=== PATIENT | female | born 1975 | race Caucasian/White ===

== ENCOUNTER 2018-08-10 05:41 | Emergency (ER) | payer MEDICAID, SELFPAY ==
[2018-08-10 05:42] VITALS: BP 123/78; PULSE 62; RESP 22; TEMP 36.6; O2SAT 100; BMI 20.1
--- NOTE | 2018-08-10 05:46 | ED.DCSUM_ITS ---
- ER Visit Summary Date of Service: 08/10/18 Chief Complaint: Right flank pain History of Present Illness: The patient is a 42 F who has right flank pain. She has had this for a week. She has pain on the right side of the flank. It does not radiate. She states she has had urinary frequency. No dysuria or hematuria. She denies fevers but has had some sweats. She tried ibuprofen without any relief. She does have history of UTIs in the past. No history of kidney stones. Physical Examination: Vital signs reviewed. HEENT exam unremarkable. Heart is regular rate and rhythm without murmurs. Lungs are clear to auscultation. Abdomen is soft and nontender. She does have some right CVA tenderness to palpation. Extremities reveal no edema. Skin exam normal. Neurologic exam normal. Test Results: Urinalysis and hCG are negative Emergency Department Course and Treatment: The patient was given [place]. She has no evidence of blood or infection in her urine. This is likely muscular. She states that she does lift a lot at work. I will treat her with naproxen and Flexeril. She will follow-up with her primary care physician. Treatment Plan: [] Disposition: Discharge Impression: Thoracic strain, right This note was generated with [employer] dictation software. It may contain incorrect words, spelling, and punctuation that were not noted in review of the chart prior to signing ED Disposition - Plan for ED Patient: Chief Complaint: Flank Pain Referrals: Care Physician,No Primary [Primary Care Provider] -
[2018-08-10] MEDS: HYDROcodone Bitartrate/Apap 5/325 Tablet PO (05:49)
[2018-08-10 05:55] LABS: Mucous, Urine 0 SEEN /hpf (<or=2+); Red Blood Cells-Urine 0 SEEN /hpf (0-5); Squamous Epithelial Cells - UA 0 SEEN /hpf (5-10); White Blood Cells 0 SEEN /hpf (0-5)
[2018-08-10 05:56] LABS: Color, Urine Yellow (Yellow); Glucose, Dipstick Normal (Normal); Ketone-Dipstick Negative (Negative); Leukocyte Esterase-Dipstick Negative /ul (Negative); Nitrite-Dipstick Negative (Negative); Occult Blood-Urine Negative /ul (Negative); Protein-Dipstick Negative (Negative); Urine Bilirubin Dipstick Negative (Negative); Urine Clarity Clear (Clear); Urine Urobilinogen Normal (Normal); Urine pH 6.5 (5.0 - 8.0)
[2018-08-10 06:00] LABS: Internal QC Validated? YES +Cl - CLEAR BKGD; Pregnancy, Urine Negative Negative
--- NOTE | 2018-08-10 06:23 | ED.DEP ---
ED Disposition - Plan for ED Patient: Disposition: Home or Assisted Living Chief Complaint: Flank Pain Instructions: ED Sprain Strain Lumbar Prescriptions: Naproxen [Naprosyn] 500 mg PO BID PRN #20 tab Cyclobenzaprine [Flexeril] 10 mg PO TID PRN #20 tab PRN Reason: Muscle Spasm Referrals: Care Physician,No Primary [Primary Care Provider] -
[2018-08-10 06:26] LABS: Bacteria RARE /hpf (None Seen); Transitional Epithelial - Ur 0-5 SEEN /hpf (0-5)
[2018-08-10 06:34] VITALS: BP 139/74; PULSE 89; RESP 20; O2SAT 98
--- NOTE | 2018-08-10 06:35 | ED.RN ---
THIS NURSE REVIEWED D/C INSTRUCTIONS WITH PT. PT VERBALIZED UNDERSTANDING OF INSTRUCTIONS. PT DENIES FURTHER NEEDS OR QUESTIONS AT THIS TIME.
== END 2018-08-10 06:36 | disposition home or self-care (01) ==
PROVIDERS: Emergency Provider Emergency Medicine
DX: S29.012A Strain of muscle and tendon of back wall of thorax, initial encounter (principal); X58.XXXA Exposure to other specified factors, initial encounter; Y93.9 Activity, unspecified; Y92.9 Unspecified place or not applicable; Y99.9 Unspecified external cause status; R35.0 Frequency of micturition; Z72.0 Tobacco use; Z86.711 Personal history of pulmonary embolism; Z87.440 Personal history of urinary (tract) infections
CPT/HCPCS: 81001; 81025; 99283

== ENCOUNTER → 2018-09-02 16:48 | Outpatient (CLI) | payer MEDICAID, SELFPAY | PROVIDERS: Visit Provider Obstetrics & Gynecology | DX: R30.0 Dysuria (principal); R31.9 Hematuria, unspecified | CPT/HCPCS: 87086; 87088; 87186 ==

== ENCOUNTER 2018-09-29 07:31 | Emergency (ER) | payer MEDICAID, SELFPAY ==
[2018-09-29 07:32] VITALS: BP 124/80; PULSE 78; RESP 18; TEMP 36; O2SAT 100; BMI 19.8
--- NOTE | 2018-09-29 07:59 | US_ITS ---
STUDY: ABDOMINAL ULTRASOUND - RIGHT UPPER QUADRANT REASON FOR VISIT: Female, 42 years old. 2 day history of intermittent epigastric pain. TECHNIQUE: Ultrasound evaluation of the right upper quadrant was performed with real-time and static bhandari-scale imaging. TECHNICAL QUALITY: Adequate. COMPARISON: None. FINDINGS: Liver: The liver measures 15.6 cm. There is normal echogenicity of the liver. The bile ducts are within normal limits. There is hepatic color flow. The direction of portal flow is hepatopetal. There is no demonstrated mass lesion. Gallbladder: Normal distended gallbladder. The gallbladder wall measures 2.6 mm. There is a negative sonographic Mendoza's sign. There is no pericholecystic fluid. There are no gallstones. Common Bile Duct (C.B.D.): The common bile duct measures 2.5 mm. Pancreas: Normal size of the head, body and tail of the pancreas. There is normal echogenicity of the pancreas. There is no demonstrated pancreatic mass or cyst. Right Kidney: Normal size of the right kidney. The right kidney measures 11.1 cm x 4.1 cm x 3.8 cm. Normal renal cortex. The right cortex measures 1.1 cm. There is no demonstrated renal mass or cyst. There is no right hydronephrosis. US/Gallbladder IMPRESSION: Normal right upper quadrant ultrasound examination. Electronically Signed: Nathan Maier MD at 9:50 EST Tel [phone], Service support ,
--- NOTE | 2018-09-29 08:02 | ED.DCSUM_ITS ---
- ER Visit Summary Date of Service: 09/29/18 Chief Complaint: Abdominal pain History of Present Illness: The patient is a [address] Monty Díaz. She reports that she has upper abdominal pain began 2 days ago. It is a constant dull pain with cramping episodes last 10-15 seconds at a time. It is 10 out of 10 at worst and 6 out of 10 currently. Is worsened by food and deep breaths. Is relieved by nothing. She reports she is been nausea and vomited 3-4 times. No blood or emesis. She states that she is having frequent soft stools. Her last problem was today. She denies any melena or hematochezia. She is passing gas. No dysuria or frequency. She is never had anything like this before. She denies any spicy or fatty food intolerance. Physical Examination: Vitals: Stable. Afebrile. General: Well-nourished and well-developed. Head: Normocephalic atraumatic. Neck: Supple, no lymphadenopathy. No JVD. Nontender. Cardiovascular: Regular rate and rhythm. No murmurs. Respiratory: No respiratory distress. Clear to auscultation bilaterally. Abdominal: Soft, mild right upper quadrant and moderate epigastric tenderness to palpation, nondistended, normal bowel sounds. No guarding, rebound, or peritoneal signs. Back: Nontender. Extremities: Nontender, no edema. Skin: Normal color, no rash. Neurologic: Alert and oriented ?3. Cranial nerves II through XII are intact. Normal strength and sensation. Psych: Normal affect. Test Results: CBC is remarkable for hemoglobin of 15. Chem-7 is more for creatinine 0.54. LFTs are normal. Lipase is normal. UA is marked for leukocytes and ketones. Right upper quadrant ultrasound shows normal gallbladder. Lost 2.6 mm. Common bile duct is 2.5 mm. No gallstones. No pericholecystic fluid. No Mendoza sign. Emergency Department Course and Treatment: Patient had an IV placed. She was given morphine and Zofran IV. She is resting comfortably. Treatment Plan: I had a prolonged discussion the patient at this time I do not have an explanation for her abdominal pain. With a complaint of being epigastric in origin of sense of fullness she will be placed on Zantac. Given Zofran for nausea. Instructed to follow-up Dr. Monty Díaz 1-2 days if not improving. Return to the emergency department for any worsening symptoms. Disposition: To home in improved and stable condition. Impression: 1. Abdominal pain, uncertain cause. This note was generated with [employer] dictation software. It may contain incorrect words, spelling, and punctuation that were not noted in review of the chart prior to signing ED Disposition - Plan for ED Patient: Chief Complaint: Abd Pain Instructions: ED Abdominal Pain Unkn Cause Prescriptions: Ondansetron [Zofran Odt] 4 mg PO Q8H PRN PRN #10 tablet PRN Reason: Nausea Ranitidine [Zantac] 300 mg PO DAILY #30 tablet Referrals: Monty Díaz MD [STAFF PHYSICIAN] - 1-2 Days if not improving
[2018-09-29] MEDS: Morphine 4 MG/ML Syringe IV (08:13)
[2018-09-29] MEDS: Ondansetron 4 MG/2 ML Vial IV (08:13)
[2018-09-29] MEDS: 0.9% Normal Saline 1,000 ML 1000 ML IV (08:13)
[2018-09-29 08:19] LABS: Absolute Lymphocyte Count 1.38 X10^3/ul (0.83-4.51); Absolute Neutrophil Count 4.2 X10^3/uL (2.0-7.7); Basophil# 0.03 X10^3/uL; Basophil% 0.5 % (0-1); Eosinophil# 0.05 X10^3/uL; Eosinophils% 0.8 % (0-5); Hematocrit 43.4 % (37-47); Hemoglobin 15.2 g/dl (12.0-15.0); Lymphocyte # 1.38 X10^3/ul (4.0); Lymphocyte % 23.2 % (19-41); Mean Corpuscular Hgb 33.4 pg (27.0-32.0); Mean Corpuscular Volume 95.4 fL (81-99); Mean Platelet Vol. 10.5 fl (6.2-12.0); Monocyte# 0.29 X10^3/uL; Monocyte% 4.9 % (0-10); Neutrophil # 4.19 X10^3/uL (2.7-7.7); Neutrophil % 70.4 % (47-70); POSITIVE COUNT NO; POSITIVE DIFFERENTIAL NO; POSITIVE MORPHOLOGY NO; Platelet Count 210 K/mm3 (150-450); RBC Distribution Width CV 12.1 % (11.6-14.6); RBC Distribution Width SD 41.4 fl (35.1-43.9); Red Blood Count 4.55 M/mm3 (4.2-5.4)
[2018-09-29 08:24] LABS: ALB/GLOB Ratio 1.3 RATIO (0.9-2.4); AST(SGOT) 15 U/L (15-37); Alanine Aminotransfer ALT/SGPT 19 U/L (13-56); Albumin, Serum 4.1 g/dL (3.2-5.0); Alkaline Phosphatase 59 U/L (45-117); BUN 12 mg/dL (7-18); BUN/Creat Ratio 22.2 RATIO (10-20); Calcium,Total 8.9 mg/dL (8.5-10.1); Chloride 107 mmol/L (98-107); Creatinine, Serum 0.54 mg/dL (0.55-1.02); EST Glomerular Filtration Rate 132 mL/min (>60); Est Glom Filt Rate - Afr Amer 160 mL/min (>60); Estimated Creatinine Clearance 125.94 ml/min; Globulin 3.2 g/dL (2.2-4.2); Glucose 100 mg/dL (74-106); Lipase 151 U/L (73-393); Potassium 3.8 mmol/L (3.5-5.1); Protein, Total 7.3 g/dL (6.4-8.2); Sodium Level 141 mmol/L (136-145)
[2018-09-29 08:25] LABS: Anion Gap 7 (5-15)
[2018-09-29 10:12] VITALS: BP 135/74; PULSE 62; RESP 15; O2SAT 98
[2018-09-29 10:15] LABS: Bacteria 0 SEEN /hpf (None Seen); Mucous, Urine 0 SEEN /hpf (<or=2+); Red Blood Cells-Urine 0 SEEN /hpf (0-5); Squamous Epithelial Cells - UA 0 SEEN /hpf (5-10)
[2018-09-29 10:19] LABS: Color, Urine Yellow (Yellow); Glucose, Dipstick Normal (Normal); Ketone-Dipstick 5 mg/dl (Negative); Leukocyte Esterase-Dipstick 25 /ul (Negative); Nitrite-Dipstick Negative (Negative); Occult Blood-Urine Negative /ul (Negative); Protein-Dipstick Negative (Negative); Specific Gravity, Urine 1.015 (1.002-1.030); Urine Bilirubin Dipstick Negative (Negative); Urine Clarity Clear (Clear); Urine Urobilinogen Normal (Normal); Urine pH 6.5 (5.0 - 8.0)
[2018-09-29 10:25] LABS: White Blood Cells 0-5 SEEN /hpf (0-5)
[2018-09-29] MEDS: Famotidine 20 MG Tablet 40 MG PO (10:52)
[2018-09-29] MEDS: Ketorolac 30 MG/ML Syringe IV (10:52)
[2018-09-29 10:56] VITALS: BP 137/84; PULSE 72; RESP 16; O2SAT 97
== END 2018-09-29 10:57 | disposition home or self-care (01) ==
LOC: ED 08:02
PROVIDERS: Emergency Provider Emergency Medicine
DX: R10.9 Unspecified abdominal pain (principal); R11.2 Nausea with vomiting, unspecified; Z72.0 Tobacco use; Z79.899 Other long term (current) drug therapy
CPT/HCPCS: 76705; 80053; 81001; 83690; 85025; 96361; 96374; 96375; 99284; J7030; A4216; J2405

== ENCOUNTER 2019-07-13 08:21 | Emergency (ER) | payer SELFPAY ==
[2019-07-13 08:22] VITALS: BP 131/86; PULSE 111; RESP 16; TEMP 36.3; O2SAT 97; BMI 20.3
--- NOTE | 2019-07-13 08:44 | RAD_ITS ---
STUDY: X-RAY CHEST REASON FOR EXAM: Female, 43 years old. Upper respiratory tract infection. Cough. TECHNIQUE: PA and lateral views of the chest. COMPARISON: None. FINDINGS: EKG electrodes are seen. The lungs are clear and expanded. There is no demonstrated pleural abnormality. Normal size heart. Normal mediastinum and nupur. Normal visualized pulmonary arteries. Normal visualized aortic arch and descending thoracic aorta. Normal visualized thoracic spine. Normal visualized ribs, clavicles, and shoulders. There is no demonstrated abnormality of the visualized soft tissue structures of the upper abdomen. RAD/Chest PA and Lateral IMPRESSION: Normal x-ray examination of the chest. Electronically Signed: Nathan Maier, at 9:22 EDT , Service support ,
--- NOTE | 2019-07-13 08:44 | EKG12_ITS ---
Test Reason : CP Blood Pressure : / mmHG Vent. Rate : 079 BPM Atrial Rate : 079 BPM P-R Int : 164 ms QRS Dur : 066 ms QT Int : 372 ms P-R-T Axes : 070 072 063 degrees QTc Int : 426 ms Sinus rhythm with Premature supraventricular complexes Otherwise normal ECG Confirmed by BLAINE SAUER ([id number]), multimedia editor NICKOLAS FRANCOIS ([id number]) on 07/20/2019 10:13:10 AM Referred By: MOISÉS
--- NOTE | 2019-07-13 08:44 | ED.VIS.GEN ---
History of Present Illness Chief Complaint: Chest Pain Detail of Chief Complaint: Anterior left lower parasternal chest pain Informant: Patient Onset: Yesterday Context: Sudden Onset Timing: Continuous Quality: Pain Location: Left parasternal lower anterior chest Current Severity: Mild Maximum Severity: Severe Worsened by: Movement LUE, movement, touch, breathing and coughing Relieved by: Nothing Associated Symptoms: Runny nose, nonproductive cough Narrative: Patient is a 43-year-old female who is a smoker who presents with anterior left parasternal chest pain that is worse with movement, coughing, breathing and use of left upper extremity for the past 2 days. She does report rhinorrhea and congestion. There is a remote history of pulmonary embolus 8 years ago after delivery of child. She denies leg pain, swelling or discoloration. She denies headache, ocular, visual or auditory symptoms. There is no history of trauma. She took a dose of ibuprofen last evening and reports no improvement. She denies hematemesis, melena or hematochezia. She has no intolerance to food. She has no history of pancreatitis. She denies alcohol use. She denies change in color of stool, consistency or caliber. Prior similar symptoms: No Recent Illness/Hospitalization: No - Past Medical History (1) Bipolar disorder Status: Chronic (2) Pulmonary embolism Status: Chronic (3) Tobacco user Status: Chronic Past Medical History - Allergies and Home Meds Allergies/Adverse Reactions: Allergies latex Allergy (Verified 07/13/19 08:24) Rash Primary Care Physician: Care Physician,No Primary [Primary Care Provider] - Prior records reviewed: Yes Surgical History: noncontributory, hysterectomy Lives: With Family Smoking Status: Current every day smoker Alcohol: None Drugs: None Review of Systems General: Denies: Chills, Fever, Malaise, Subjective, Sweats Eyes: Denies: Visual changes - bilaterally, Blurred Vision - bilaterally ENT: Reports: Rhinorrhea. Denies: Bilateral ear pain, Sore throat Cardiovascular: Reports: Chest pain. Denies: Palpitations, Heart racing Respiratory: Reports: Cough. Denies: Dyspnea, Sputum, Dyspnea on exertion, Orthopnea, Paroxysmal nocturnal dyspnea Gastrointestinal: Denies: Abdominal pain, Nausea, Vomiting, Diarrhea, Melena, Hematochezia Genitourinary: Denies: Dysuria, Hematuria, Frequency Musculoskeletal: Denies: Myalgias, Arthralgias, Neck pain, Back pain, Swelling, Extremity Pain, -, - Skin: Denies: Rash, Wounds Neurological: Denies: Headache, Weakness, Numbness Hematologic: Denies: Easy bruising, Easy bleeding Allergy: Denies: Uticaria, Swelling of the mouth, Swelling of the tongue Physical Exam Vital Signs/Narrative: Vital Signs Temp Pulse Resp BP Pulse Ox 07/13/19 08:22 97.3 F L 111 H 16 131/86 H 97 Inital Vital Signs reviewed: Yes General: Well nourished, Well developed, Acute Distress Head: Normocephalic, Atraumatic Eyes: Perrl, EOMI ENT: Moist mucous membranes, TM's clear, Nasal congestion. Negative for: No rhinorrhea Neck: Supple, Nontender, No lymphadenopathy, No JVD Cardiovascular: Regular rate, Regular rhythm, No murmurs, Normal S1, Normal S2 Respiratory: No distress, CTA bilaterally, Chest tenderness - Patient has exquisite tenderness fifth left intercostal space to light touch. She states this reproduces her pain. Abdomen: Soft, Nontender, Nondistended, Normal bowel sounds, No masses. Negative for: Hepatomegaly, Splenomegaly, Mass Rectal: Deferred Back: Nontender, Normal Inspection Extremities: Nontender, No edema, - - There is no asymmetry, swelling, discoloration, leg vein distention, palpable cords or tenderness along the distribution of the deep venous system. Skin: Normal color, No rash, No Trauma. Negative for: Cyanosis, Diaphoresis, Jaundice Neurological: Alert, Oriented x3, Cranial nerves II-XII grossly intact, Normal Strength, Normal Sensation, Normal DTR Psychological: Tearful Diagnostic/Tx/Re-eval Chest X-Ray - ED: 2 View, Normal, Heart, Mediastinum, Bony Structures, No Acute Disease, Chronic Changes, - - There is no infiltrate or pneumothorax. There is evidence of hyper aeration consistent with long-standing history of smoking. 07/13/19 08:44 Chest PA and Lateral [RAD] Stat Laboratory Results 07/13/19 07/13/19 08:34 08:34 WBC 7.4 RBC 4.29 Hgb 14.1 Hct 40.3 MCV 93.9 MCH 32.9 H MCHC 35.0 RDW Std Deviation 41.4 RDW Coeff of Florentin 12.1 Plt Count 244 MPV 10.5 Immature Gran % (Auto) 0.300 Neut % (Auto) 68.7 Lymph % (Auto) 23.4 [place] % (Auto) 5.7 Eos % (Auto) 1.2 Baso % (Auto) 0.7 Absolute Neuts (auto) 5.1 Absolute Lymphs (auto) 1.72 Nucleated RBC % 0 Sodium 140 Potassium 4.0 Chloride 108 H Carbon Dioxide 26.0 Anion Gap 6 BUN 9 Creatinine 0.67 Estim Creat Clear Calc 102.86 Est GFR (MDRD) Af Amer 125 Est GFR (MDRD) Non-Af 103 BUN/Creatinine Ratio 13.5 Glucose 98 Calcium 9.1 - EKG Initial EKG Interpretation: Sinus Rhythm - Ventricular rate is 79. WI interval is 164 ms. QRS duration is 66 ms. QT duration is 372 ms. There is motion artifact. Computer is reading premature supraventricular complexes. There is one premature atrial complex noted. There are no ischemic changes. - Medical Decision Making With URI symptoms, reproducible left anterior chest pain suspect costochondritis. Because she has a cough and is a smoker will obtain chest x-ray to evaluate for pneumonia. Patient was treated with IV Toradol. EKG was obtained per nurse protocol and reveals a sinus rhythm. There is no ischemic changes noted. Was informed of her results. She is no longer having pain. Will discharge with prescription for NSAIDs as is no contraindication. ED Disposition - Plan for ED Patient: Disposition: Home or Assisted Living Diagnosis: Pleurisy, Costochondritis, acute, Viral URI with cough Instructions: Pleurisy, CHEST WALL PAIN, Costochondritis Prescriptions: Naproxen [Naprosyn] 500 mg PO BID #14 tab Transmission Status: Pending to [facility]30 Referrals: Care Physician,No Primary [Primary Care Provider] - Additional Instructions: Prescription was electronically transmitted to [facility]formerly [facility] If you are not better in a week follow-up with your primary care provider. Your primary care provider's name is on your insurance card issued to you by [facility].
[2019-07-13 08:51] LABS: Absolute Lymphocyte Count 1.72 X10^3/uL (0.83-4.51); Absolute Neutrophil Count 5.1 X10^3/uL (2.0-7.7); Basophil# 0.05 X10^3/uL; Basophil% 0.7 % (0-1); Eosinophil# 0.09 X10^3/uL; Eosinophils% 1.2 % (0-5); Hematocrit 40.3 % (37-47); Hemoglobin 14.1 g/dL (12.0-15.0); Lymphocyte # 1.72 X10^3/ul (4.0); Lymphocyte % 23.4 % (19-41); Mean Corpuscular Hgb 32.9 pg (27.0-32.0); Mean Corpuscular Volume 93.9 fL (81-99); Mean Platelet Vol. 10.5 fl (6.2-12.0); Monocyte# 0.42 X10^3/uL; Monocyte% 5.7 % (0-10); NRBC Flagged by Analyzer 0 % (0-5); Neutrophil # 5.05 X10^3/uL (2.7-7.7); Neutrophil % 68.7 % (47-70); Platelet Count 244 K/mm3 (150-450); RBC Distribution Width CV 12.1 % (11.6-14.6); RBC Distribution Width SD 41.4 fl (35.1-43.9); Red Blood Count 4.29 M/mm3 (4.2-5.4); White Blood Count 7.4 K/mm3 (4.4-11.0)
[2019-07-13] MEDS: Ketorolac 15 MG/ML Vial IV (08:55)
[2019-07-13 08:58] LABS: Anion Gap 6 (5-15); BUN 9 mg/dL (7-18); BUN/Creat Ratio 13.5 RATIO (10-20); Calcium,Total 9.1 mg/dL (8.5-10.1); Chloride 108 mmol/L (98-107); Creatinine, Serum 0.67 mg/dL (0.55-1.02); EST Glomerular Filtration Rate 103 mL/min (>60); Est Glom Filt Rate - Afr Amer 125 mL/min (>60); Estimated Creatinine Clearance 102.86 ml/min; Glucose 98 mg/dL (74-106); Sodium Level 140 mmol/L (136-145)
[2019-07-13 09:32] VITALS: BP 92/63; PULSE 64; RESP 16; O2SAT 99
== END 2019-07-13 09:33 | disposition home or self-care (01) ==
PROVIDERS: Emergency Provider Emergency Medicine
DX: R09.1 Pleurisy (principal); M94.0 Chondrocostal junction syndrome [Tietze]; J06.9 Acute upper respiratory infection, unspecified; I49.1 Atrial premature depolarization; F17.200 Nicotine dependence, unspecified, uncomplicated; Z86.711 Personal history of pulmonary embolism; Z91.040 Latex allergy status; Z90.710 Acquired absence of both cervix and uterus
CPT/HCPCS: 71046; 80048; 85025; 93005; 96374; 99284; A4216

== ENCOUNTER 2022-09-18 14:41 | Emergency (ER) | payer MEDICAID, SELFPAY ==
[2022-09-18 14:42] VITALS: BP 131/62; PULSE 80; RESP 16; TEMP 36.2; O2SAT 99; BMI 21.2
--- NOTE | 2022-09-18 15:00 | ED.VIS.BACK ---
HPI History of Present Illness Chief Complaint: Back Narrative Narrative: 46-year-old female presenting with left lower back pain. She states she had just received her jump rope in the mail and went to jump rope outside. She states after a couple of turns she felt something pull in her lower gluteal region and lower back. She did not warm up before the exercise and states I did not feel I needed to warm up. She does not jump rope on a regular basis. She denies a fall or direct trauma. She took 200 mg of Advil before coming and states this has not helped. She denies saddle anesthesia paresthesia. No loss of bladder bowel control. No history of back surgeries in the past PFSH PFSH Medical History no medical history Home Medications naproxen 500 mg tablet 500 mg PO BID #14 tabs 07/13/19 [Rx Last Taken Unknown] cyclobenzaprine 10 mg tablet 10 mg PO BID PRN muscle spasm #14 tabs 09/18/22 [Rx Last Taken Unknown] hydrocodone-acetaminophen 5-325mg 5mg-325mg 1 tab PO Q6H PRN pain 3 days #10 tabs 09/18/22 [Rx Last Taken Unknown] Allergy/AdvReac Type Severity Reaction Status Date / Time latex Allergy Rash Verified 09/18/22 14:41 Surgical History no surgical history Social History Smoking Status: Current every day smoker tobacco type: cigarettes ROS ROS ED Constitutional Constitutional ED: Denies chills or fever(s) Eyes Eyes: Denies change in vision ENT ENT ED: Denies rhinorrhea or sore throat Cardiovascular Cardiovascular: Denies chest pain or palpitations Respiratory/Chest Respiratory/Chest: Denies dyspnea or dyspnea on exertion Gastrointestinal Gastrointestinal: Denies abdominal pain or constipation Genitourinary Genitourinary ED: Denies dysuria or hematuria Musculoskeletal Musculoskeletal: Reports back pain; Denies arthralgias Integumentary Denies abscess or Abrasions Neurologic Neurologic: Denies headache(s) or paresthesias Psychiatric Psychiatric: Denies anxiety or depression EXAM Physical Exam Const Vital Signs: 09/18/22 14:42 Temperature 97.1 F L Temperature Source Temporal Pulse Rate 80 Respiratory Rate 16 Blood Pressure 131/62 H Blood Pressure Mean 85 Pulse Ox 99 Oxygen Delivery Method Room Air Positive well nourished HEENT Reports moist mucous membranes trauma Eyes PERRL and EOMs intact bilaterally Neck no lymphadenopathy Resp normal respiratory effort and clear to auscultation bilaterally Cardio regular rate and regular rhythm GI normal to inspection, nondistended, normoactive bowel sounds Back/Spine Back/Spine Narrative: No midline lumbar spinal tenderness, deformity, step-off. There is tenderness palpation in the left lumbar paraspinal musculature. No rash, ecchymosis. Extremity normal to inspection Neuro oriented x3 and no sensory deficits noted Sensorium / Orientation: alert Motor Exam: strength 5/5 throughout Psych mental status grossly normal Skin no rashes or lesions noted and no wounds MDM MDM MDM Narrative Medical decision making narrative: Okay with morphine and Zofran as well as Toradol. She is feeling better on reevaluation at 4 PM. Counseled her on stretching exercises. I did also family court counsellor her on warming up before exercise but she is waiting to her back pain resolves before restarting. X-rays of the lumbar spine on my interpretation showed no acute fracture. The radiologist interpretation agrees. He does mention that there is some disc base narrowing at L2-L3 with spondylolisthesis. Patient counseled on findings. He is counseled to use ibuprofen and Tylenol alternating doses at home. She will be given [place] and cyclobenzaprine for breakthrough symptoms. She can alternate these, Impression: 1 lumbar strain Lab Data Attestation: I reviewed the patient's lab results. Radiography Diagnostic Testing: Clinical Impression(s) from Imaging Studies Lumbar Spine X-Ray 09/18/22 15:20 IMPRESSION: Spondylolisthesis and disc space narrowing at the L2-L3 level. Mild degree of levoconvex scoliosis. Electronically Signed: Nathan Maier MD at 15:37 EDT , Discharge Plan Triage Chief Complaint: Back ED Provider: Bernard Reyes Dx/Rx/DC Orders Instructions: ED Back Sprain/Strain Prescriptions: New hydrocodone-acetaminophen 5-325 mg tablet 1 tab PO Q6H PRN (Reason: pain) 3 Days Qty: 10 0RF cyclobenzaprine 10 mg tablet 10 mg PO BID PRN (Reason: muscle spasm) Qty: 14 0RF No Action naproxen 500 MG tablet 500 mg PO BID Qty: 14 0RF Primary Care Provider: Care Physician,No Primary Referrals: Garima Norton MD [Med Staff - [employer]] - 3-5 Days Care Physician,No Primary [Primary Care Provider] - Disposition Disposition: Home, Self Care
[2022-09-18] MEDS: Lidocaine 5% Patch 1 PATCH TOPICAL (15:06)
[2022-09-18] MEDS: Ketorolac 15 MG/ML Vial IM (15:07)
[2022-09-18] MEDS: Morphine 4 MG/ML Syringe IM (15:07)
[2022-09-18] MEDS: Ondansetron ODT 4 MG Tablet PO (15:10)
--- NOTE | 2022-09-18 15:20 | RAD_ITS ---
STUDY: X-RAY - LUMBAR SPINE REASON FOR EXAM: Female, 46 years old. Back pain TECHNIQUE: 3 view(s) of the lumbar spine were obtained. COMPARISON: None FINDINGS: Normal lumbar lordosis. There is a mild levoscoliosis of the lumbar spine. There is a normal alignment of the vertebrae. Spondylosis and disc space narrowing at the L2-L3 level. The soft tissue structures are unremarkable. RAD/Lumbar Spine 2 or 3 Views IMPRESSION: Spondylolisthesis and disc space narrowing at the L2-L3 level. Mild degree of levoconvex scoliosis. Electronically Signed: Nathan Maier MD at 15:37 EDT ,
[2022-09-18 16:10] VITALS: BP 103/64; RESP 14
--- NOTE | 2022-09-18 16:11 | ED.RN ---
PT REPORTS SHE IS TEXTING HER SIGNIFICANT OTHER TO OBTAIN A RIDE HOME. INFORMED NOT TO DRIVE WHEN TAKING NARCOTIC MEDICATION AND THAT SHE US UNABLE TO DRIVE FOR 6 HOURS AFTER HAVING MEDICATION.
== END 2022-09-18 16:11 | disposition home or self-care (01) ==
PROVIDERS: Emergency Provider Student in an Organized Health Care Education/Training Program; Visit Provider Student in an Organized Health Care Education/Training Program
DX: S39.012A Strain of muscle, fascia and tendon of lower back, initial encounter (principal); M48.061 Spinal stenosis, lumbar region without neurogenic claudication; X58.XXXA Exposure to other specified factors, initial encounter; Y93.56 Activity, jumping rope; Z79.1 Long term (current) use of non-steroidal anti-inflammatories (NSAID); F17.210 Nicotine dependence, cigarettes, uncomplicated
CPT/HCPCS: 72100; 96372; 99284

== ENCOUNTER 2024-01-06 09:52 | Emergency (ER) | payer MEDICAID, SELFPAY ==
[2024-01-06 09:52] VITALS: BP 128/72; PULSE 62; RESP 14; TEMP 35.7; O2SAT 100; BMI 19.5
--- NOTE | 2024-01-06 10:04 | EDS_ITS ---
HPI History of Present Illness Chief Complaint: Chest Other Detail of Chief Complaint: Right lower rib cage injury. Informant: patient Onset/Context/Timing Onset: Days Activity at onset: sudden Timing: Continuous Quality: Positive for Sharp Location: Right Chest Current Severity: Mild Maximum Severity: Moderate Worsened By: Movement of Torso and Breathing Relieved By: Remaining Still Associated Symptoms: Negative for Nausea, Vomiting, Diaphoresis, Dyspnea, Cough, Fever, Lightheadedness, Acid Reflux or Palpitations Narrative Narrative: 48-year-old female has no past medical history. Patient's and daughter were messing around wrestling. They landed on her left rib cage and she has had pain on it since that time. She is concerned she may have broken a rib. This occurred over the weekend. No other symptoms. She is not short of breath. No hemoptysis. No fever. Prior Similar Symptoms: No Recent Illness/Hospitalization: No CVD Risk Factors: Negative for Hypertension, Diabetes, Hypercholesterolemia or Family History 1' </=55 PE Risk Factors: Negative for Recent Travel/Surgery, Recent Immobilization, Prior DVT or PE, Cancer or OCP + Smoking + >/=35 TAD Risk Factors: Negative for Marfan's Syndrome PFSH PFSH Medical History no medical history no medical history Home Medications naproxen 500 mg tablet 500 mg PO BID #14 tabs 07/13/19 [Rx Last Taken Unknown] cyclobenzaprine 10 mg tablet 10 mg PO BID PRN muscle spasm #14 tabs 09/18/22 [Rx Last Taken Unknown] hydrocodone-acetaminophen 5-325mg 5mg-325mg 1 tab PO Q6H PRN pain 3 days #10 tabs 09/18/22 [Rx Last Taken Unknown] Allergy/AdvReac Type Severity Reaction Status Date / Time latex Allergy Rash Verified 01/06/24 09:52 Social History Smoking Status: Current every day smoker tobacco type: cigarettes ROS ROS ED ROS Narrative Left lateral rib cage pain after being hit in the ribs. No recent illness. Review of Systems ROS Unobtainable: Denies due to encephalopathy Constitutional Constitutional ED: Denies chills or fever(s) ENT ENT ED: Denies ear pain Cardiovascular Cardiovascular: Reports chest pain Respiratory/Chest Respiratory/Chest: Denies cough or dyspnea Genitourinary Genitourinary ED: Denies dysuria Musculoskeletal Musculoskeletal: Denies arthralgias Integumentary Denies abscess Neurologic Neurologic: Denies headache(s) Psychiatric Psychiatric: Denies anxiety Endocrine Endocrinology: Denies cold intolerance Hematologic/Lymphatic Hematologic/Lymphatic: Denies easy bleeding, easy bruising or lymphadenopathy Allergic/Immunologic Allergic/Immunologic ED: Denies mouth swelling, tongue swelling or urticaria EXAM Physical Exam Narrative Exam Narrative: Well-appearing 48-year-old female. No distress. Vital signs are stable afebrile. Pulse ox 100% on room air no hypoxia. H EENT exam normal. Missing dentition. Neck nontender. No lymphadenopathy. Lungs clear to auscultation bilaterally. Heart regular rhythm rate about 60 no murmur. She has reproducible chest wall pain along her left lower lateral and medial rib cage. There is no ecchymosis or bruising. No subcu air or crepitus. No gross bony deformity. No bruising. Right rib cage and back ribs are nontender. Abdomen soft nontender. No peritoneal signs. Pelvic girdle intact. Moving all 4 extremities. Nontender no edema. Back nontender. Neurologically she is awake and alert with no focal motor deficits. Const Vital Signs: 01/06/24 09:52 01/06/24 10:06 Temperature 96.2 F L Temperature Source Temporal Pulse Rate 62 Respiratory Rate 14 Respiratory Effort Normal Blood Pressure 128/72 H Blood Pressure Mean 90 Pulse Ox 100 Oxygen Delivery Method Room Air Positive well nourished and well developed; Negative for obese, cachectic, contractures or unkempt General Appearance ED: well developed and NAD; Negative for unkempt, cachectic, contractures or pallor Nutritional Appearance: Negative for cachectic or obese HEENT Reports moist mucous membranes normocephalic and atraumatic; Negative for trauma or tenderness Eyes PERRL and EOMs intact bilaterally General Eye ED: Negative for pale conjunctiva, scleral icterus or other Neck no lymphadenopathy, supple and no JVD General: Negative for tenderness Chest Wall inspection of chest normal; Negative for palpation of chest normal Chest Narrative: Tenderness left lower lateral and medial rib cage anteriorly. No subcu air crepitance. No bruising. No bony deformity. Chest: tenderness Resp normal respiratory effort and clear to auscultation bilaterally Effort and Inspection: Negative for respiratory distress Auscultation: Negative for rales, rhonchi, wheezes or diminished lung sounds Cardio regular rate, regular rhythm, S1 normal heart sound, S2 normal heart sound and no murmurs Rate: Negative for bradycardia or tachycardic Rhythm: Negative for abnormal rhythm Peripheral Pulses: pulses 2+ throughout GI normal to inspection, nondistended, normoactive bowel sounds, soft to palpation, non-tender and non-distended Auscultation: Negative for hyperactive bowel sounds Back/Spine no CVA tenderness and no thoracic nor lumbar tenderness General Back: Negative for CVA tenderness Cervical Spine: Negative for cervical spine tenderness Extremity normal to inspection General Extremety ED: Negative for edema, pulses abnormal or tenderness General Extremity: Negative for edema or pulses abnormal Neuro oriented x3 and CN's II-XII intact bilaterally Sensorium / Orientation: awake, alert, oriented to person, oriented to place and oriented to time; Negative for confused, lethargic or stuporous Motor Exam: strength 5/5 throughout Psych mental status grossly normal Appearance: Negative for unkempt Attitude: No agitated Mood & Affect: Negative for depressed, anxious or tearful Skin no rashes or lesions noted and no wounds General Skin Exam: Negative for jaundice or pallor Rashes: No rashes noted Trauma: Negative for abrasion, laceration or puncture MDM MDM MDM Narrative Medical decision making narrative: 48-year-old injury to her left lower lateral rib cage chest x-ray 2 views being obtained. Concern for chest wall contusion versus rib fracture. No signs of pneumothorax at this time. Repeat exam patient doing well at 10:25 AM. Exam unchanged. Patient I discussed her x-rays and limitations of x-rays. Diagnosed with chest wall and rib contusion versus minor nonradiographic fracture. Ice to the area. Pillow for support. Alternate Tylenol and Motrin for pain. History & Record Review Discussion w/independent historian: Patient Additional record(s) reviewed:: Prior inpatient record, Prior outpatient record, Prior ED visit and Prior labs Radiography Chest X-Ray - ED: 2 View, Read by ED Physician, Heart, Lungs, Mediastinum, Bony Structures, No Acute Disease and Chronic Changes Diagnostic Testing: Chest x-ray, 2 views, AP and lateral, interpreted by myself shows no acute abnormality. No obvious rib fracture. No pneumothorax. No infiltrates. Normal cardiac silhouette. I did go over the x-rays with the patient. I did explain to her that rib fractures can be missed on a chest x-ray. Discharge Plan Triage Chief Complaint: Chest Other ED Provider: George Mayo Dx/Rx/DC Orders Clinical Impression: Rib contusion Instructions: ED Rib Contusion or Minor Fracture Prescriptions: No Action naproxen 500 MG tablet 500 mg PO BID Qty: 14 0RF hydrocodone-acetaminophen 5-325 mg tablet 1 tab PO Q6H PRN (Reason: pain) 3 Days Qty: 10 0RF cyclobenzaprine 10 mg tablet 10 mg PO BID PRN (Reason: muscle spasm) Qty: 14 0RF Primary Care Provider: Care Physician,No Primary Referrals: Delonte Morales MD [Med Staff - Clinical Office Technician] - As Needed Care Physician,No Primary [Primary Care Provider] - Activity Restrictions/Additional Instructions: No obvious broken ribs on the chest x-ray. Sometimes it is a small crack in her rib we cannot see it on the x-rays. Ice to the area. Use a pillow to brace those ribs to support them. Alternate Motrin and Tylenol for pain and swelling. Follow-up if not improving or return if worse. Disposition Disposition: Home, Self Care
--- NOTE | 2024-01-06 10:11 | RAD_ITS ---
STUDY: X-RAY CHEST REASON FOR EXAM: Female, 48 years old. Left-sided pain following injury. TECHNIQUE: PA and lateral views of the chest. COMPARISON: Comparison is made with prior study dated July 13, 2019. FINDINGS: Hyperinflation. The lungs are clear. There is no demonstrated pleural abnormality. Normal size heart. Normal mediastinum and nupur. Normal visualized pulmonary arteries. Normal visualized aortic arch and descending thoracic aorta. There is demineralization of the osseous structures. Loss of height of the superior endplate of the L1 vertebrae. Normal visualized ribs, clavicles, and shoulders. There is no demonstrated abnormality of the visualized soft tissue structures of the upper abdomen. RAD/Chest PA and Lateral IMPRESSION: Hyperinflation. The lungs are clear. Loss of height of the L1 vertebrae. Electronically Signed: Nathan Maier MD at 10:59 EST ,
[2024-01-06 10:54] VITALS: BP 126/78; PULSE 64; RESP 16; TEMP 36.4; O2SAT 99
== END 2024-01-06 10:54 | disposition home or self-care (01) ==
LOC: ED 10:34
PROVIDERS: Emergency Provider Emergency Medicine; Visit Provider Emergency Medicine
DX: S20.211A Contusion of right front wall of thorax, initial encounter (principal); W50.0XXA Accidental hit or strike by another person, initial encounter; Y93.83 Activity, rough housing and horseplay; F17.210 Nicotine dependence, cigarettes, uncomplicated
CPT/HCPCS: 71046; 99282

== ENCOUNTER 2025-02-14 08:44 | Emergency (ER) | payer MEDICAID, SELFPAY ==
[2025-02-14 08:45] VITALS: BP 112/70; PULSE 65; RESP 18; TEMP 35.9; O2SAT 100; BMI 18.8
--- NOTE | 2025-02-14 08:58 | EKG12_ITS ---
Test Reason : FLANK PAIN Blood Pressure : */* mmHG Vent. Rate : 42 BPM Atrial Rate : 42 BPM P-R Int : 190 ms QRS Dur : 72 ms QT Int : 470 ms P-R-T Axes : 53 73 66 degrees QTcB Int : 392 ms Marked sinus bradycardia Abnormal ECG Confirmed by DENISE MOSS, JAYJAY ([id number]), editor at large JEN CARDENAS ([id number]) on 02/15/2025 8:35:21 AM Referred By: Confirmed By: JAYJAY WALKER MD
--- NOTE | 2025-02-14 08:59 | EX.ED.DYSGE1 ---
HPI History of Present Illness Chief Complaint: Flank Pain Informant: patient Narrative Narrative: 49-year-old female presenting to the emergency room with left-sided thoracic back pain. Patient states that yesterday at work she developed a significant pain in the left lateral thoracic back along her ribs. She states is a very focal area that is made worse with deep breathing. Somewhat uncomfortable to move her arms. She states it has been rather constant. She notes no associated fever cough sweating vomiting. She denies any rash. She notes she had a prior pulmonary Jewish and was on Lovenox during her . She states she is not currently on any medications. She denies any known recent DVT PE risk factors. She is a smoker. [facility] Medical History (Updated 02/14/25 @ 09:[address] Pablo Johnston DO) Pulmonary embolism Home Medications ?Medication ?Instructions ?Recorded ?Last Taken ?Type naproxen 500 mg tablet 500 mg PO BID #14 tabs 07/13/19 Unknown Rx cyclobenzaprine 10 mg tablet 10 mg PO BID PRN muscle spasm #14 09/18/22 Unknown Rx tabs hydrocodone-acetaminophen 5-325mg 1 tab PO Q6H PRN pain 3 days #10 09/18/22 Unknown Rx 5mg-325mg tabs Allergy/AdvReac Type Severity Reaction Status Date / Time latex Allergy Rash Verified 01/06/24 09:52 Social History Smoking Status: Current every day smoker tobacco type: cigarettes ROS ROS ED Constitutional Constitutional ED: Denies chills, fever(s) or weight loss Eyes Eyes: Denies change in vision or diplopia ENT ENT ED: Denies ear pain, rhinorrhea or sore throat Cardiovascular Cardiovascular: Denies chest pain, orthopnea, palpitations or racing heartbeat Respiratory/Chest Respiratory/Chest: Reports dyspnea; Denies cough or orthopnea Gastrointestinal Gastrointestinal: Denies abdominal pain, diarrhea, nausea or vomiting Genitourinary Genitourinary ED: Denies dysuria, hematuria or urinary frequency Musculoskeletal Musculoskeletal: Reports back pain; Denies arthralgias, myalgias or neck pain Integumentary Denies abscess or rash Neurologic Neurologic: Denies headache(s) or weakness Psychiatric Psychiatric: Denies anxiety, depression, suicidal ideation or suicidal thoughts Endocrine Endocrinology: Denies polydipsia, polyphagia or polyuria Allergic/Immunologic Allergic/Immunologic ED: Denies mouth swelling, tongue swelling or urticaria EXAM Physical Exam Const Vital Signs: 02/14/25 08:45 Temperature 96.6 F L Temperature Source Temporal Pulse Rate 65 Respiratory Rate 18 Blood Pressure 112/70 Blood Pressure Mean 84 Pulse Ox 100 Oxygen Delivery Method Room Air Positive well nourished and well developed General Appearance ED: well developed HEENT Reports normocephalic, head/scalp atraumatic and moist mucous membranes Eyes PERRL and EOMs intact bilaterally Neck no lymphadenopathy, supple and no JVD Chest Wall inspection of chest normal and palpation of chest normal Resp clear to auscultation bilaterally Resp Narrative: Patient appears tachypneic but also anxious. Effort and Inspection: pain with movement LUE Cardio regular rate, regular rhythm and no murmurs GI normal to inspection, nondistended, normoactive bowel sounds and non-tender Palpation: soft Back/Spine no CVA tenderness and normal ROM Extremity normal to inspection General Extremety ED: Negative for edema General Extremity: Negative for edema Neuro oriented x3 and CN's II-XII intact bilaterally Sensorium / Orientation: alert Motor Exam: strength 5/5 throughout Psych mental status grossly normal Mood & Affect: anxious; Negative for depressed or tearful Skin no rashes or lesions noted and no wounds MDM MDM MDM Narrative Medical decision making narrative: Differential diagnosis includes but not limited to pulmonary embolism pneumothorax pleurisy pleural effusion pneumonia rib pain intercostal muscle strain thoracic back strain Patient's troponin is less than 6. I do not feel we need a second troponin as symptoms have been present for greater than 8 hours. White count is normal at 5.0 hemoglobin 13.7 normal creatinine. CTA of the chest was obtained which does not demonstrate pulmonary embolism aortic dissection pneumothorax pneumonia or pleural effusion. Her EKG is nonischemic. Patient was treated with Zofran Toradol and morphine. Patient is feeling better. Clinically I think this is probably more musculoskeletal pain in the rib region. We can treat with some cyclobenzaprine and anti-inflammatories. Gentle stretching. Follow-up with primary care if not improving return if worsening. History & Record Review Discussion w/independent historian: Patient Lab Data Attestation: I reviewed the patient's lab results. Labs: Laboratory Results - last 24 hr 02/14/25 09:11 WBC 5.0 RBC 4.31 Hgb 13.7 Hct 39.2 MCV 91.0 MCH 31.8 MCHC 34.9 RDW Std Deviation 44.9 H RDW Coeff of Florentin 13.3 Plt Count 238 MPV 10.9 Immature Gran % (Auto) 0.200 Neut % (Auto) 58.6 Lymph % (Auto) 32.7 Sutton % (Auto) 6.7 Eos % (Auto) 0.8 Baso % (Auto) 1.0 Absolute Neuts (auto) 3.0 Absolute Lymphs (auto) 1.65 Nucleated RBC % 0 Sodium 138 Potassium 3.9 Chloride 106 Carbon Dioxide 18.2 L Anion Gap 14 BUN 8 Creatinine 0.51 L Estim Creat Clear Calc 117.76 Est GFR (MDRD) Non-Af 116 BUN/Creatinine Ratio 15.7 Glucose 92 Calcium 9.2 Troponin T High Sens < 6 Radiography Diagnostic Testing: Clinical Impression(s) from Imaging Studies Chest CTA 02/14/25 09:22 IMPRESSION: NORMAL CHEST CTA. NO EVIDENCE OF ACUTE PULMONARY EMBOLISM. Hyperinflation and emphysematous changes. Reading Location: [facility]- EKG Initial EKG: Attestation: I personally reviewed and interpreted this EKG as follows: Comments: Sinus bradycardia ventricular rate of 42 bpm Discharge Plan Triage Chief Complaint: Flank Pain ED Provider: Pablo Johnston Dx/Rx/DC Orders Prescriptions: No Action naproxen 500 MG tablet 500 mg PO BID Qty: 14 0RF hydrocodone-acetaminophen 5-325 mg tablet 1 tab PO Q6H PRN (Reason: pain) 3 Days Qty: 10 0RF cyclobenzaprine 10 mg tablet 10 mg PO BID PRN (Reason: muscle spasm) Qty: 14 0RF Primary Care Provider: Care Physician,No Primary Referrals: Care Physician,No Primary [Primary Care Provider] - Print Language: Portuguese
[2025-02-14] MEDS: 0.9% Normal Saline (1000mL) 1,000 ML 1000 ML IV (09:10)
[2025-02-14] MEDS: Ondansetron 4 MG/2 ML Vial IV (09:10)
[2025-02-14] MEDS: Ketorolac 30 MG/ML Syringe IV (09:10)
[2025-02-14] MEDS: Morphine 4 MG/ML Syringe IV (09:11)
[2025-02-14 09:16] LABS: Absolute Lymphocyte Count 1.65 X10^3/uL (0.83-4.51); Basophil# 0.05 X10^3/uL; Eosinophil# 0.04 X10^3/uL; Eosinophils% 0.8 % (0-5); Hematocrit 39.2 % (37-47); Hemoglobin 13.7 g/dL (12.0-15.0); Lymphocyte # 1.65 X10^3/ul (0.83-4.51); Lymphocyte % 32.7 % (19-41); Mean Corp Hgb Conc 34.9 g/dL (32-36); Mean Corpuscular Hgb 31.8 pg (27.0-32.0); Mean Platelet Vol. 10.9 fl (6.2-12.0); Monocyte# 0.34 X10^3/uL; Monocyte% 6.7 % (0-10); NRBC Flagged by Analyzer 0 % (0-5); Neutrophil # 2.95 X10^3/uL (2.7-7.7); Neutrophil % 58.6 % (47-70); Platelet Count 238 K/mm3 (150-450); RBC Distribution Width CV 13.3 % (11.6-14.6); RBC Distribution Width SD 44.9 fl (35.1-43.9); Red Blood Count 4.31 M/mm3 (4.2-5.4)
--- NOTE | 2025-02-14 09:22 | CT_ITS ---
PROCEDURE: CTA CHEST W/WO CONTRAST 02/14/2025 REASON FOR EXAM: PULMONARY EMBOLISM (L) Chest pain. TECHNIQUE: CTA axial imaging of the chest with intravenous contrast. Coronal and Sagittal reconstruction series were provided. 3D, 3D post processing, 3D reconstructions, Maximum intensity projection (MIPs) Volume rendering and Shaded surface rendering was provided. PATIENT PREPARATION: Per protocol One or more dose reduction techniques were used (e.g., Automated exposure control, adjustment of the mA and/or kV according to patient size, use of iterative reconstruction technique). CONTRAST: Isovue 370. VOLUME: 88mL RADIATION DOSE SUMMARY: CTDlvol: 6 mGy DLP: 156.65 mGycm COMPARISON: Comparison is made with prior chest radiograph dated January 06, 2024. FINDINGS: Hardware: None Lymph nodes: Unremarkable Heart: Unremarkable RV/LV Diameter Ratio: One-to-one Thoracic Aorta: No thoracic aortic aneurysm or dissection. Pulmonary Vessels: No evidence of acute pulmonary emboli through the major subsegmental branches. Most Proximal Level of Embolus (if embolus present): Lungs and Airways: Mild emphysematous changes are present. Pleura: No pleural effusion. No pneumothorax. Upper Abdomen: Visualized portions of the upper abdominal viscera are unremarkable. Bones: Degenerative changes of the thoracic spine. Aorta: Unremarkable CT/CTA Chest W/WO Contrast IMPRESSION: NORMAL CHEST CTA. NO EVIDENCE OF ACUTE PULMONARY EMBOLISM. Hyperinflation and emphysematous changes. Reading Location: [place] [id number]
[2025-02-14 09:44] LABS: Anion Gap 14 (5-15); BUN 8 mg/dL (4-19); BUN/Creat Ratio 15.7 RATIO (10-20); Calcium,Total 9.2 mg/dL (7.6-11.0); Carbon Dioxide 18.2 mmol/L (21.0-32.0); Chloride 106 mmol/L (98-108); Creatinine, Serum 0.51 mg/dL (0.70-1.20); EST Glomerular Filtration Rate 116 (>60); Estimated Creatinine Clearance 117.76 ml/min (50-250); Glucose 92 mg/dL (70-99); Potassium 3.9 mmol/L (3.3-5.1); Sodium Level 138 mmol/L (133-145); Troponin T High Sensitivity < 6 ng/L (<=14)
[2025-02-14 10:45] VITALS: PULSE 78; RESP 18; O2SAT 98
== END 2025-02-14 11:45 | disposition home or self-care (01) ==
PROVIDERS: Emergency Provider Emergency Medicine; Visit Provider Emergency Medicine
DX: M54.6 Pain in thoracic spine (principal); F17.210 Nicotine dependence, cigarettes, uncomplicated
CPT/HCPCS: 71275; 80048; 84484; 85025; 93005; 96361; 96374; 96375; 99285; Q9967; J2405